=== PATIENT | male | born 1970 | race Caucasian/White ===

== ENCOUNTER 2017-05-17 15:57 | Inpatient (IN) | payer OTHER ==
--- NOTE | ~2017-05-17 | HP ---
History And Physical [place] [id number] [facility] [place]. [address] NAME: WHIT PIERCE : 72 STATUS : ADM Jaydon PAT#: [id number] AGE: 46 ADM/REG DATE : 05/18/17 MR#: [id number] REPORT SERV DATE: 05/18/17 DICTATED BY: CARLI SILVA DATE: 05/18/17 REPORT STATUS : Draft TRANSCRIBED BY: MODPalmira DATE: 05/18/17 DATE OF ADMISSION: 05/18/2017 POINT OF ENTRY: [facility] Emergency Department. CHIEF COMPLAINT: Lower extremity swelling and erythema. HISTORY OF PRESENT ILLNESS: Mr. Pierce is a 46-year-old gentleman with a history of morbid obesity with chronic lower extremity lymphedema and chronic venous stasis, who presents to the emergency department today with reports of worsening lower extremity erythema, drainage, and swelling concerning for possible lower extremity cellulitis. The patient states that he has had chronic issues with lower extremity lymphedema with chronic venous stasis. He does not see Wound Care, but has been referred by his PCP recently. He was started on a course of clindamycin about five days ago by his PCP for concerns for lower extremity cellulitis as it was noted that the erythema is chronically on his legs has started to spread more proximally. The patient also reports some worsening of lower extremity edema as well as some scant serous drainage from both legs, left greater than right. The patient states that his symptoms did not improve at all on the clindamycin and therefore he presented to the emergency department given concerns for possible failure of outpatient antibiotic therapy. Initial evaluation in the emergency department was notable for vital signs that are stable. Labs are unremarkable. He is afebrile. White count is normal. Blood cultures were obtained as well as wound culture, and the patient was started on a dose of vancomycin concerned for cellulitis. REVIEW OF SYSTEMS: Comprehensive review of system otherwise negative unless listed in history present illness. PREVIOUS MEDICAL HISTORY: 1. Morbid obesity. 2. Hypothyroidism. 3. Chronic lower extremity lymphedema with chronic venous stasis and stasis dermatitis. 4. Hyperlipidemia. 5. Hypertension. 6. Obstructive sleep apnea and obesity hypoventilation syndrome, no longer on CPAP therapy, but on nocturnal oxygen. 7. Iron-deficiency anemia. SURGICAL HISTORY: Right foot surgery. ALLERGIES: NO KNOWN DRUG ALLERGIES. HOME MEDICATIONS: 1. Clindamycin 300 mg q.6 hours. History And Physical [address] [address] NAME: WHIT PIERCE : 72 STATUS : ADM Jaydon PAT#: [id number] AGE: 46 ADM/REG DATE : 05/18/17 MR#: [id number] REPORT SERV DATE: 05/18/17 DICTATED BY: CARLI SILVA DATE: 05/18/17 REPORT STATUS : Draft TRANSCRIBED BY: CHRIS DATE: 05/18/17 2. Pepcid 20 mg b.i.d. 3. Flonase two sprays nasal q.h.s. 4. Lasix 80 mg daily. 5. Levothyroxine 350 mcg daily. 6. Cytomel 25 mcg daily. 7. Lisinopril 20 mg daily. 8. Tylenol No. 4 one tablet q.4 hours p.r.n. SOCIAL HISTORY: Denies any tobacco, alcohol, or illicits. He is on disability. FAMILY HISTORY: Notable for hypertension and diabetes. LABS AND IMAGIN. White count is 9.3, hemoglobin is 11.8, hematocrit is 35.7, and platelet count is 294. 2. Sodium is 136, potassium 5.0, chloride 104, carbon dioxide 30, BUN 15, creatinine 1.25, glucose is 99, calcium is 9.2, protein is 8.6, albumin is 3.8, bilirubin is 0.4, ALT is 27, AST 56, and alkaline phosphatase is 42. 3. Lactic acid is 0.5. 4. Chest x-ray per my review shows a very poor penetrated film, but does show some cardiomegaly as well as some possible pulmonary venous congestion. PHYSICAL EXAMINATION: VITAL SIGNS: Temperature is 98.1 degrees Fahrenheit, pulse is 87, respirations 16, saturating 97% on room air, and blood pressure 136/107. GENERAL: The patient is awake and alert. He is a morbidly obese male in no acute distress. HEENT: Atraumatic and normocephalic. Moist mucous membranes. Pupils are equal, round, reactive to light and accommodation. Extraocular eye movements intact. No scleral icterus. NECK: No jugular venous distention. No carotid bruits. CARDIAC: Regular rate and rhythm. No murmurs or gallops. Normal S1, S2. LUNGS: Clear to auscultation bilaterally. No wheezes, rhonchi, or rales. ABDOMEN: Obese, soft, nontender, and nondistended. Good bowel sounds. No rebound, guarding, or rigidity. EXTREMITIES: Warm and perfused. The patient has chronic lower extremity lymphedema with chronic venous stasis and stasis dermatitis. There are multiple subcentimeter areas on the left lower extremity superficial ulceration with serous drainage. It is somewhat warm to the touch over the erythematous areas. Right lower extremity also has erythematous region that is somewhat warm to the touch, spreading to the infrapatellar region, but no obvious purulent drainage, skin breakdown or palpable fluid collections. SKIN: Warm and dry except for noted above. PSYCH: Affect appropriate. NEURO: Alert and oriented x3. Cranial nerves 2 through 12 grossly intact. Speech is normal. Gait not assessed. ASSESSMENT AND PLAN: Mr. Pierce is a 46-year-old gentleman with history of morbid obesity with lymphedema and chronic venous stasis and stasis dermatitis, who presents with concerns for bilateral lower extremity cellulitis has failed outpatient antibiotic therapy. History And Physical [address] [address] NAME: WHIT PIERCE : 72 STATUS : ADM Jaydon PAT#: [id number] AGE: 46 ADM/REG DATE : 05/18/17 MR#: [id number] REPORT SERV DATE: 05/18/17 DICTATED BY: CARLI SILVA DATE: 05/18/17 REPORT STATUS : Draft TRANSCRIBED BY: CHRIS DATE: 05/18/17 PROBLEM LIST: 1. Lower extremity lymphedema with chronic venous stasis dermatitis with concern for possible overlying cellulitis. 2. Morbid obesity. 3. Obstructive sleep apnea and obesity hypoventilation syndrome, no longer on CPAP therapy. 4. Hypothyroidism. 5. Hypertension. PLAN: 1. Lower extremity lymphedema with chronic venous stasis dermatitis. I do not appreciate any evidence of active cellulitis at this time, but we will empirically place the patient on some IV Ancef as he seemed to respond to this during his previous admission in May 2016. We will follow up blood cultures as well as wound cultures. We will ask Wound Care nurses see the patient. I think he would benefit from some Unna boots and/or some type of compressive wound therapy for his lymphedema. We will also convert his oral Lasix to IV Lasix for 24 hours in an attempt to improve his lymphedema and venous stasis with some diuresis. 2. Hypothyroidism. Continue the patient's home medications. Checking thyroid function studies given the large amount of Synthroid he is requiring. 3. Obstructive sleep apnea and obesity hypoventilation syndrome. The patient states he is no longer on CPAP therapy as it was taken away from him due to noncompliance. He is on 2 L nocturnal oxygen. We will continue this and continue to monitor. 4. Hypertension. Continue the patient's home antihypertensives. 5. DVT prophylaxis. Lovenox subcu. CODE STATUS: The patient wished to be full code. JCB/MODL Carli Silva MD / [id number] CC: Kulwant Carmen M.D.
--- NOTE | ~2017-05-17 | IDS ---
Interim Discharge Summary [facility] [address] [place]. [address] NAME: WHIT PIERCE : 72 STATUS : ADM IN [facility]#: [id number] AGE: 46 ADM/REG DATE : 05/18/17 MR#: [id number] REPORT SERV DATE: 05/21/17 DICTATED BY: Juan R COSME DATE: 05/21/17 REPORT STATUS : Draft TRANSCRIBED BY: MODL DATE: 05/21/17 ADMISSION DATE: 05/18/2017 DISCHARGE DATE: CURRENT DIAGNOSES: 1. Cellulitis, left lower extremity, with open wound. Wound culture positive methicillin- resistant Staphylococcus aureus. 2. Bilateral lower extremity lymphedema with chronic venous stasis. 3. Obstructive sleep apnea with obesity hypoventilation syndrome. 4. Hypertension. 5. Hypothyroidism. 6. Morbid obesity. IMAGIN. Portable chest x-ray, 05/17/2017, no acute process. Lungs and pleural spaces are clear. 2. Wound culture on 05/18/2017 is positive for MRSA. LABORATORY STUDIES: 1. 05/21/2017, CBC revealed a white count of 7.3, hemoglobin 12.7, hematocrit 39.1, and platelets 260,000. 2. Basic metabolic panel on 05/21/2017 revealed a sodium of 137, potassium 4, BUN 19, creatinine 1.14, glucose 113, calcium 8.7, and mag 2.6. HISTORY OF PRESENT ILLNESS: For complete history, please refer to admission H and P by Dr. Arturo Chase. Briefly, Mr. Pierce is a 46-year-old morbidly obese gentleman, who presented to the emergency room with complaints of lower extremity edema and erythema with drainage and a wound on his left lower extremity. He was placed on clindamycin outpatient with no improvement in his symptoms. The Hospitalist Service admitted the patient for further evaluation and treatment. HOSPITAL COURSE: Mr. 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 A wound culture was done. He was also placed on DVT prophylaxis with Lovenox. Given antiemetics and analgesics p.r.n. Initially, he was given IV Ancef every eight hours as well as IV Lasix every eight hours for three doses. I initially saw the patient on 05/18/2017. He was in no acute distress. He informed me that he had previously had a CPAP at home; however, this was removed from his home secondary to his noncompliance. He does have nocturnal oxygen at home at 2 L per nasal cannula. He remained on the IV Ancef until his cultures came back with MRSA, and he was changed to IV vancomycin. He does have hypothyroidism with a very high TSH of 155. His primary care provider, just last week, increased his Synthroid from 300 mcg to 350 mcg p.o. daily. He will need a repeat TSH in four to six weeks. On 04/20/2017, he moved out of CDU to [address] [place] [address]. His vital signs are stable. He is afebrile. His blood cultures have been negative to this point. I did discuss appropriate course of antibiotics with Dr. Fuller today, as the patient failed outpatient with clindamycin. Dr. Fuller recommends five to Interim Discharge Summary [address] [address] NAME: WHIT PIERCE : 72 STATUS : ADM IN [facility]#: [id number] AGE: 46 ADM/REG DATE : 05/18/17 MR#: [id number] REPORT SERV DATE: 05/21/17 DICTATED BY: Juan R COSME DATE: 05/21/17 REPORT STATUS : Draft TRANSCRIBED BY: CHRIS DATE: 05/21/17 seven days of generic Zyvox or linezolid at the time of discharge. Case Management has received approval for linezolid at the time of discharge. So, a prescription will need to be written, and the patient should get this prescription filled in [place], as he [place] Medicaid. The expense of the prescription in [place] shall be less than 3 dollars per Case Management. So, the patient continues to receive IV vancomycin today. DISPOSITION: Will be to home at the time of discharge. The patient lives with his mother and has good support. He did have home healthcare that was arranged prior to his admission. He will need to resume home healthcare for dressing changes to his left lower extremity. He does have Tubigrips on bilateral lower extremities currently and his home dose Lasix has been resumed. DICTATED BY: AMELIA Hastings/CHRIS Juan R Cosme M.D. / [id number] CC: Kulwant Carmen M.D.
--- NOTE | ~2017-05-17 | DS ---
Discharge Summary [facility] [address] [place]. [address] NAME: WHIT PIERCE : 72 STATUS : DIS IN PAT#: [id number] AGE: 46 ADM/REG DATE : 05/18/17 MR#: [id number] REPORT SERV DATE: 05/23/17 DICTATED BY: FABIEN ABERNATHY DATE: 05/23/17 REPORT STATUS : Draft TRANSCRIBED BY: MODL DATE: 05/23/17 ADMISSION DATE: 05/18/2017 DISCHARGE DATE: 05/23/2017 More than 30 minutes in total was spent on this discharge. DISCHARGE DIAGNOSES: Include: 1. Left lower extremity cellulitis. 2. Hypothyroid myxedema. 3. Hypertension. 4. Obstructive sleep apnea with obesity hypoventilation syndrome. DISCHARGE MEDICATIONS: Include Tirosint 150 mcg 2 pills daily, Pepcid 20 mg twice daily, Flonase nasal spray once daily, Lasix 80 mg once daily, lisinopril 20 mg once daily, and Keflex 500 t.i.d. DISPOSITION: The patient will be discharged home in excellent condition. I did have a lengthy discussion with him about taking his thyroid medication 1 hour before eating and also not taking it with any of his other medications. I also explained to him that he cannot take Synthroid because Synthroid contains gluten and also is not pulverized, and so it is not absorbed well. I explained to him that Tirosint is a pulverized gel and does not contain gluten and would improve absorption dramatically. I explained to him that the reason he developed the cellulitis is because he has myxedema from his hypothyroidism. HOSPITAL COURSE: Mr. Pierce is a 46-year-old white gentleman, patient of Dr. Sergio Castellon at the [facility] in [place], who presented with chronic venous stasis, chronic left lower extremity edema, and when he was admitted, he had a cellulitis of the left lower extremity. He was started on vancomycin, elevation of the leg, and over the next several days he did improve dramatically. In reviewing his lab work, he did have a wound culture, which was positive for MRSA. His wound improved dramatically. We had a long discussion regarding his thyroid and treatment of his thyroid. Pertinent testing during hospitalization included discharge BMP which was normal with a creatinine of 1.14, normal CBC with hemoglobin of 12.8. Recent B12 level of 205, recent TSH of 155 despite taking over 300 mcg of Synthroid, A1c of 5.5. Testosterone level of 58, possibly related to his obesity. Again, at this point, he will be discharged home in excellent condition. DICTATED BY: Fabien Abernathy M.D. DD/CHRIS Fabien Abernathy M.D. Discharge Summary [place] [address] [place]. [address] NAME: WHIT PIERCE : 72 STATUS : DIS IN PAT#: [id number] AGE: 46 ADM/REG DATE : 05/18/17 MR#: [id number] REPORT SERV DATE: 05/23/17 DICTATED BY: FABIEN ABERNATHY DATE: 05/23/17 REPORT STATUS : Draft TRANSCRIBED BY: CHRIS DATE: 05/23/17 / [id number] CC: Kulwant Flores M.D.
[~2017-05-17 15:57] MED LIST: CYTO25 PO; DEMA20 PO; DURICEF PO; KLOR-CON M2020 MEQ PO; SPIRO25 PO; SYNTHROID300 MCG PO; ZOCOR20 PO
[2017-05-17] MEDS ORDERED: LEVOTHYROXIN50 MCG PO (21:44)
[2017-05-17] MEDS ORDERED: PRIN20 PO (21:48)
[2017-05-17] MEDS ORDERED: TYLENOL #4 PO (21:48)
[2017-05-17] MEDS ORDERED: CLEOCIN300 MG PO (21:48)
[2017-05-17] MEDS ORDERED: L80 PO (21:49)
[2017-05-17] MEDS ORDERED: CYTO25 PO (21:49)
[2017-05-17] MEDS ORDERED: FLONASE NAS (21:49)
[2017-05-17] MEDS ORDERED: PEP20 PO (21:49)
[2017-05-17 23:01] LABS: BASOPHILS 0.9 %; BASOPHILS ABSOLUTE 0.08 10/3/uL (0.0-0.16); EOSINOPHILS 6.6 %; EOSINOPHILS ABSOLUTE 0.62 10/3/uL (0.0-0.53); HEMATOCRIT 35.7 % (40.0-51.0); HEMOGLOBIN 11.8 g/dL (13.6-17.8); IMMATURE GRANULOCYTES 1.9 %; IMMATURE GRANULOCYTES ABSOLUTE 0.18 10/3/uL (0.0-0.11); LYMPHOCYTES 26.7 %; LYMPHOCYTES ABSOLUTE 2.49 10/3/uL (0.67-4.30); MEAN CORPUS HGB CONC 33.1 g/dL (32.0-36.0); MEAN CORPUSCULAR VOLUME 93.7 fL (80-100); MEAN PLATELET VOLUME 10.5 fL (9.2-13.0); MONOCYTES 5.3 %; MONOCYTES ABSOLUTE 0.49 10/3/uL (0.21-1.20); NEUTROPHILS 58.6 %; NEUTROPHILS ABSOLUTE 5.47 10/3/uL (2.02-8.40); PLATELET COUNT 294 10/3/uL (150-400); RBC DISTRIBUTION WIDTH 14.2 % (12.0-16.0); RED CELL COUNT 3.81 10/6/uL (4.7-6.1); WHITE BLOOD CELLS 9.3 10/3/uL (4.5-10.5)
[2017-05-17 23:06] LABS: MANUAL DIFF NO %
[2017-05-17 23:16] LABS: A/G RATIO 0.8 (0.7-1.9); ALBUMIN 3.8 G/DL (3.5-5.0); ALKALINE PHOSPHATASE 42 U/L (45-117); CALCIUM, SERUM 9.2 MG/DL (8.5-10.4); CO2 (CARBON DIOXIDE) 30 MMOL/L (24-34); CREATININE 1.25 MG/DL (0.70-1.30); GFR AFRICAN AMERICAN 80 ML/MIN (>=60); GFR NON AFRICAN AMERICAN 69 ML/MIN (>=60); GLOBULIN 4.8 G/DL (2.5-4.1); GLUCOSE, SERUM 99 MG/DL (60-99); SGPT(ALT) 21 U/L (5-65); SODIUM, SERUM 136 MMOL/L (135-148); TOTAL BILIRUBIN 0.4 MG/DL (0-1.2); TOTAL PROTEIN 8.6 G/DL (6.0-8.5)
[2017-05-17 23:18] LABS: BUN (BLOOD UREA NITROGEN) 15 MG/DL (6-23); CHLORIDE, SERUM 104 MMOL/L (96-112); SGOT(AST) 56 U/L (5-40)
[2017-05-18 09:54] LABS: BASOPHILS 0.6 %; BASOPHILS ABSOLUTE 0.05 10/3/uL (0.0-0.16); EOSINOPHILS 5.6 %; EOSINOPHILS ABSOLUTE 0.46 10/3/uL (0.0-0.53); HEMOGLOBIN 12.1 g/dL (13.6-17.8); IMMATURE GRANULOCYTES 1.8 %; IMMATURE GRANULOCYTES ABSOLUTE 0.15 10/3/uL (0.0-0.11); LYMPHOCYTES 25.1 %; LYMPHOCYTES ABSOLUTE 2.05 10/3/uL (0.67-4.30); MEAN CORPUS HGB CONC 31.8 g/dL (32.0-36.0); MEAN CORPUSCULAR HEMOGLOB 29.8 pg (26.0-34.0); MEAN CORPUSCULAR VOLUME 93.6 fL (80-100); MEAN PLATELET VOLUME 9.4 fL (9.2-13.0); MONOCYTES 3.9 %; MONOCYTES ABSOLUTE 0.32 10/3/uL (0.21-1.20); NEUTROPHILS ABSOLUTE 5.15 10/3/uL (2.02-8.40); PLATELET COUNT 286 10/3/uL (150-400); RBC DISTRIBUTION WIDTH 14.3 % (12.0-16.0); RED CELL COUNT 4.06 10/6/uL (4.7-6.1); WHITE BLOOD CELLS 8.2 10/3/uL (4.5-10.5)
[2017-05-18 09:57] LABS: MANUAL DIFF NO %
[2017-05-18 10:37] LABS: BUN (BLOOD UREA NITROGEN) 15 MG/DL (6-23); CALCIUM, SERUM 9.2 MG/DL (8.5-10.4); CHLORIDE, SERUM 102 MMOL/L (96-112); CO2 (CARBON DIOXIDE) 31 MMOL/L (24-34); CREATININE 1.21 MG/DL (0.70-1.30); FREE T4 0.58 NG/DL (0.76-1.46); GFR AFRICAN AMERICAN 83 ML/MIN (>=60); GFR NON AFRICAN AMERICAN 72 ML/MIN (>=60); GLUCOSE, SERUM 107 MG/DL (60-99); POTASSIUM, SERUM 3.9 MMOL/L (3.5-5.3); SODIUM, SERUM 139 MMOL/L (135-148)
[2017-05-19 04:45] LABS: BASOPHILS 0.5 %; BASOPHILS ABSOLUTE 0.04 10/3/uL (0.0-0.16); EOSINOPHILS 5.7 %; EOSINOPHILS ABSOLUTE 0.42 10/3/uL (0.0-0.53); HEMATOCRIT 37.4 % (40.0-51.0); HEMOGLOBIN 12.2 g/dL (13.6-17.8); IMMATURE GRANULOCYTES 1.7 %; IMMATURE GRANULOCYTES ABSOLUTE 0.13 10/3/uL (0.0-0.11); LYMPHOCYTES 28.3 %; MANUAL DIFF NO %; MEAN CORPUS HGB CONC 32.6 g/dL (32.0-36.0); MEAN CORPUSCULAR HEMOGLOB 30.4 pg (26.0-34.0); MEAN CORPUSCULAR VOLUME 93.3 fL (80-100); MEAN PLATELET VOLUME 9.6 fL (9.2-13.0); MONOCYTES 8.2 %; MONOCYTES ABSOLUTE 0.61 10/3/uL (0.21-1.20); NEUTROPHILS 55.6 %; NEUTROPHILS ABSOLUTE 4.13 10/3/uL (2.02-8.40); PLATELET COUNT 289 10/3/uL (150-400); RBC DISTRIBUTION WIDTH 14.3 % (12.0-16.0); RED CELL COUNT 4.01 10/6/uL (4.7-6.1); WHITE BLOOD CELLS 7.4 10/3/uL (4.5-10.5)
[2017-05-19 04:59] LABS: CALCIUM, SERUM 8.6 MG/DL (8.5-10.4); CHLORIDE, SERUM 102 MMOL/L (96-112); CO2 (CARBON DIOXIDE) 27 MMOL/L (24-34); CREATININE 1.41 MG/DL (0.70-1.30); GFR AFRICAN AMERICAN 69 ML/MIN (>=60); GFR NON AFRICAN AMERICAN 60 ML/MIN (>=60); GLUCOSE, SERUM 108 MG/DL (60-99); POTASSIUM, SERUM 3.6 MMOL/L (3.5-5.3); SODIUM, SERUM 138 MMOL/L (135-148)
[2017-05-19 05:00] LABS: BUN (BLOOD UREA NITROGEN) 22 MG/DL (6-23)
[2017-05-20 05:09] LABS: BASOPHILS 0.8 %; BASOPHILS ABSOLUTE 0.06 10/3/uL (0.0-0.16); EOSINOPHILS 5.9 %; EOSINOPHILS ABSOLUTE 0.43 10/3/uL (0.0-0.53); HEMATOCRIT 36.1 % (40.0-51.0); HEMOGLOBIN 11.6 g/dL (13.6-17.8); IMMATURE GRANULOCYTES 1.5 %; IMMATURE GRANULOCYTES ABSOLUTE 0.11 10/3/uL (0.0-0.11); LYMPHOCYTES 30.3 %; LYMPHOCYTES ABSOLUTE 2.22 10/3/uL (0.67-4.30); MEAN CORPUS HGB CONC 32.1 g/dL (32.0-36.0); MEAN CORPUSCULAR HEMOGLOB 30.3 pg (26.0-34.0); MEAN CORPUSCULAR VOLUME 94.3 fL (80-100); MEAN PLATELET VOLUME 9.4 fL (9.2-13.0); MONOCYTES 7.1 %; MONOCYTES ABSOLUTE 0.52 10/3/uL (0.21-1.20); NEUTROPHILS 54.4 %; NEUTROPHILS ABSOLUTE 3.99 10/3/uL (2.02-8.40); PLATELET COUNT 256 10/3/uL (150-400); RBC DISTRIBUTION WIDTH 14.3 % (12.0-16.0); RED CELL COUNT 3.83 10/6/uL (4.7-6.1); WHITE BLOOD CELLS 7.3 10/3/uL (4.5-10.5)
[2017-05-20 05:12] LABS: MANUAL DIFF NO %
[2017-05-20 05:34] LABS: BUN (BLOOD UREA NITROGEN) 20 MG/DL (6-23); CALCIUM, SERUM 8.7 MG/DL (8.5-10.4); CHLORIDE, SERUM 104 MMOL/L (96-112); CO2 (CARBON DIOXIDE) 28 MMOL/L (24-34); CREATININE 1.19 MG/DL (0.70-1.30); GFR AFRICAN AMERICAN 85 ML/MIN (>=60); GFR NON AFRICAN AMERICAN 73 ML/MIN (>=60); GLUCOSE, SERUM 103 MG/DL (60-99); SODIUM, SERUM 138 MMOL/L (135-148)
[2017-05-20 05:39] LABS: POTASSIUM, SERUM 4.7 MMOL/L (3.5-5.3)
[2017-05-21 03:51] LABS: BASOPHILS 0.4 %; BASOPHILS ABSOLUTE 0.03 10/3/uL (0.0-0.16); EOSINOPHILS 5.7 %; EOSINOPHILS ABSOLUTE 0.42 10/3/uL (0.0-0.53); HEMATOCRIT 39.1 % (40.0-51.0); HEMOGLOBIN 12.7 g/dL (13.6-17.8); IMMATURE GRANULOCYTES 1.6 %; IMMATURE GRANULOCYTES ABSOLUTE 0.12 10/3/uL (0.0-0.11); LYMPHOCYTES 28.5 %; LYMPHOCYTES ABSOLUTE 2.09 10/3/uL (0.67-4.30); MEAN CORPUS HGB CONC 32.5 g/dL (32.0-36.0); MEAN CORPUSCULAR HEMOGLOB 30.4 pg (26.0-34.0); MEAN CORPUSCULAR VOLUME 93.5 fL (80-100); MEAN PLATELET VOLUME 9.4 fL (9.2-13.0); MONOCYTES 6.1 %; MONOCYTES ABSOLUTE 0.45 10/3/uL (0.21-1.20); NEUTROPHILS 57.7 %; NEUTROPHILS ABSOLUTE 4.22 10/3/uL (2.02-8.40); PLATELET COUNT 260 10/3/uL (150-400); RBC DISTRIBUTION WIDTH 14.3 % (12.0-16.0); RED CELL COUNT 4.18 10/6/uL (4.7-6.1); WHITE BLOOD CELLS 7.3 10/3/uL (4.5-10.5)
[2017-05-21 03:59] LABS: MANUAL DIFF NO %
[2017-05-21 04:05] LABS: BUN (BLOOD UREA NITROGEN) 19 MG/DL (6-23); CALCIUM, SERUM 8.7 MG/DL (8.5-10.4); CHLORIDE, SERUM 103 MMOL/L (96-112); CO2 (CARBON DIOXIDE) 29 MMOL/L (24-34); CREATININE 1.14 MG/DL (0.70-1.30); GFR AFRICAN AMERICAN 90 ML/MIN (>=60); GFR NON AFRICAN AMERICAN 77 ML/MIN (>=60); GLUCOSE, SERUM 113 MG/DL (60-99); SODIUM, SERUM 137 MMOL/L (135-148)
[2017-05-22 08:01] LABS: BASOPHILS 0.4 %; BASOPHILS ABSOLUTE 0.04 10/3/uL (0.0-0.16); EOSINOPHILS 4.3 %; EOSINOPHILS ABSOLUTE 0.47 10/3/uL (0.0-0.53); HEMATOCRIT 39.3 % (40.0-51.0); HEMOGLOBIN 12.8 g/dL (13.6-17.8); IMMATURE GRANULOCYTES 0.9 %; LYMPHOCYTES 17.2 %; LYMPHOCYTES ABSOLUTE 1.86 10/3/uL (0.67-4.30); MEAN CORPUS HGB CONC 32.6 g/dL (32.0-36.0); MEAN CORPUSCULAR HEMOGLOB 30.2 pg (26.0-34.0); MEAN CORPUSCULAR VOLUME 92.7 fL (80-100); MEAN PLATELET VOLUME 9.5 fL (9.2-13.0); MONOCYTES 5.4 %; MONOCYTES ABSOLUTE 0.58 10/3/uL (0.21-1.20); NEUTROPHILS 71.8 %; NEUTROPHILS ABSOLUTE 7.76 10/3/uL (2.02-8.40); PLATELET COUNT 261 10/3/uL (150-400); RBC DISTRIBUTION WIDTH 14.4 % (12.0-16.0); RED CELL COUNT 4.24 10/6/uL (4.7-6.1)
[2017-05-22 08:02] LABS: MANUAL DIFF NO %; WHITE BLOOD CELLS 10.8 10/3/uL (4.5-10.5)
[2017-05-22 08:17] LABS: BUN (BLOOD UREA NITROGEN) 21 MG/DL (6-23); CALCIUM, SERUM 9.3 MG/DL (8.5-10.4); CHLORIDE, SERUM 102 MMOL/L (96-112); CO2 (CARBON DIOXIDE) 31 MMOL/L (24-34); CREATININE 1.14 MG/DL (0.70-1.30); GFR AFRICAN AMERICAN 90 ML/MIN (>=60); GFR NON AFRICAN AMERICAN 77 ML/MIN (>=60); GLUCOSE, SERUM 100 MG/DL (60-99); POTASSIUM, SERUM 4.2 MMOL/L (3.5-5.3); SODIUM, SERUM 138 MMOL/L (135-148)
[2017-05-23 07:19] LABS: BUN (BLOOD UREA NITROGEN) 22 MG/DL (6-23); CALCIUM, SERUM 9.7 MG/DL (8.5-10.4); CHLORIDE, SERUM 103 MMOL/L (96-112); CO2 (CARBON DIOXIDE) 28 MMOL/L (24-34); CREATININE 1.04 MG/DL (0.70-1.30); GFR AFRICAN AMERICAN 100 ML/MIN (>=60); GFR NON AFRICAN AMERICAN 86 ML/MIN (>=60); GLUCOSE, SERUM 103 MG/DL (60-99); POTASSIUM, SERUM 3.9 MMOL/L (3.5-5.3); SODIUM, SERUM 137 MMOL/L (135-148)
[2017-05-23] MEDS ORDERED: TIROSINT150 MCG PO (11:18)
[2017-05-23] MEDS ORDERED: MONODOX100 MG PO (11:19)
== END 2017-05-23 14:55 | disposition home or self-care (01) | DRG 603 ==
LOC: ER 15:57 → CDU1 05-18 00:47 → CDU2 05-18 01:54 → 4SO 05-21 11:25
PROVIDERS: Internal Medicine; Nurse Practitioner; Nurse Practitioner Acute Care
DX: L03.116 Cellulitis of left lower limb (principal); N17.9 Acute kidney failure, unspecified; E66.2 Morbid (severe) obesity with alveolar hypoventilation; Z68.44 Body mass index [BMI] 60.0-69.9, adult; E03.9 Hypothyroidism, unspecified; B95.62 Methicillin resistant Staphylococcus aureus infection as the cause of diseases classified elsewhere; I87.8 Other specified disorders of veins; I12.9 Hypertensive chronic kidney disease with stage 1 through stage 4 chronic kidney disease, or unspecified chronic kidney disease; N18.9 Chronic kidney disease, unspecified
CPT/HCPCS: 71010; 80048; 80053; 80202; 83605; 83735; 83880; 84439; 84443; 85025; 87040; 87070; 87077; 87150; 87186; 87205; 96365; 99284; A9270-GY; J0690; J3370